=== PATIENT | female | born 1975 | race Caucasian/White ===

== ENCOUNTER → 2017-06-05 | Outpatient (CLI) | payer OTHER | LOC: FIMAGING 11:38 | PROVIDERS: ATTEND Nurse Practitioner | DX: R10.84 Generalized abdominal pain (principal); R14.0 Abdominal distension (gaseous); M61.451 Other calcification of muscle, right thigh ==

== ENCOUNTER 2018-10-14 05:51 | Observation (INO) | payer OTHER ==
--- NOTE | 2018-09-30 14:57 | GHP ---
DATE OF ADMISSION: 10/14/2018 PLANNED PROCEDURE: Total laparoscopic hysterectomy with bilateral salpingectomy for diagnosis of dysfunctional uterine bleeding. INDICATIONS: Patient is a 43-year-old, 3, para 2-0-1-2, who has a longstanding history of heavy and irregular periods. She had a Mirena years ago and loved it, and then she had a second Mirena placed, but she was having constant pain and bleeding and copious vaginal discharge. She underwent a hysteroscopy with morcellation of endometrial tissue and then endometrial ablation, which significantly improved her periods for about a year and a half. However, her periods have become progressively worse over the last 4 months. She has had increased bleeding and back pain and passing tissue about 1-2 times a month. The patient also has some stress urinary incontinence and initially had wanted to have that addressed at the time of surgery, but has declined to have that evaluated or treated at this time. Management options were reviewed with the patient, including hormonal therapy versus expected management versus hysterectomy. The patient has elected to proceed with a total laparoscopic hysterectomy with bilateral salpingectomy. Risks and benefits have been extensively reviewed with the patient, and patient has been properly consented. MEDICAL HISTORY: Significant for anxiety and depression, dysfunctional uterine bleeding and menorrhagia, and obesity. MEDICATIONS: Effexor 150 mg a day, prilosec. SURGICAL HISTORY: Cholecystectomy, ankle reconstruction secondary to ruptured tendon, hysteroscopy with morcellation of endometrial tissue and underwent endometrial ablation, tonsillectomy, and EGD. ALLERGIES: Codeine, which is just an intolerance which causes nausea and vomiting. Wellbutrin, which causes eosinophilic esophagitis. SOCIAL HISTORY: The patient is . She denies tobacco or drug use. She does drink alcoholic beverages socially. 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 FAMILY MEDICAL HISTORY: Noncontributory. LOGISTICS SUPERVISOR HISTORY: Menarche age 12. Periods have were previously 27 days to 37 days and heavy. She has had dysfunctional uterine bleeding and irregular bleeding for the last 5 months. The patient denies any history of any abnormal Pap smears or sexually transmitted diseases. She is a 3, para 2-0-1-2. She has had 2 spontaneous vaginal deliveries and 1 spontaneous . PHYSICAL EXAMINATION: VITAL SIGNS: Stable. GENERAL APPEARANCE: Alert and oriented x3. NECK: Mobile and supple. HEART: Rate is regular, regular. LUNGS: Clear to auscultation bilaterally. ABDOMEN: Obese, soft, nondistended , nontender. EXTREMITIES: Reveal no calf tenderness or edema. PELVIC: Reveals a mobile midposition uterus with no adnexal masses. MUSCULOSKELETAL: Grossly intact. PSYCH: Appropriate affect, grossly intact. NEURO: Grossly intact. Pelvic ultrasound was obtained, which showed her uterus measuring 6.5 x 2.7 x 4.45 cm with an endometrium of 0.64 cm, and normal ovaries. There is a possible polyp within the uterus. REVIEW OF SYSTEMS: 10-point review of systems is negative with the exception of the above-mentioned pertinent positives. ASSESSMENT AND PLAN: A 43-year-old, 3, para 2-0-1-2, who has progressively worsening dysfunctional uterine bleeding following an endometrial ablation 2 years ago. She is requesting definitive therapy with total laparoscopic with bilateral salpingectomy. Risks and benefits have been extensively reviewed with the patient, and the patient has been properly consented. She is aware of the risk of damage to the bowel, bladder, major blood vessels, risk of needing to open, as well as other potential need for additional surgery. The patient has been properly consented. /[id number]/MODL MTDD
[2018-10-14] MEDS ORDERED: BUPIVACAINE 0.5% 30 ML SDV ONE (06:02)
[2018-10-14] MEDS ORDERED: ceFAZolin 2 GM/DEXTROSE 100 ML IV ONE (06:05)
[2018-10-14] MEDS ORDERED: LR 1,000 ML IV ONE (06:12)
[2018-10-14] MEDS ORDERED: SCOPOLAMINE HYDROBROMIDE 1 MG/3 DAYS PATCH TD ONE (06:55)
--- NOTE | 2018-10-14 06:55 | PDANEPAE ---
ANE History of Present Illness 43 y/o female with dysfunctional uterine bleeding here for laparoscopic hysterectomy. ANE Past Medical History - Cardiovascular History Hx Hypertension: No Hx Arrhythmias: No Hx Chest Pain: No Hx Coronary Artery / Peripheral Vascular Disease: No Hx CHF / Valvular Disease: No Hx Palpitations: No - Pulmonary History Hx COPD: No Hx Asthma/Reactive Airway Disease: No Hx Recent Upper Respiratory Infection: No Hx Oxygen in Use at Home: No Hx Sleep Apnea: No Sleep Apnea Screening Result - Last Documented: Negative - Neurologic History Hx Cerebrovascular Accident: No Hx Seizures: No Hx Dementia: No - Endocrine History Hx Diabetes: No - Renal History Hx Renal Disorders: No - Liver History Hx Hepatic Disorders: No - Neurological & Psychiatric Hx Hx Neurological and Psychiatric Disorders: Yes Neurological / Psychiatric History Comment: depression - Cancer History Hx Cancer: No - Congenital Disorder History Hx Congenital Disorders: No - GI History Hx Gastrointestinal Disorders: Yes Gastrointestinal History Comment: gerd - Other Health History Other Health History: wears glasses/ contacts - Chronic Pain History Chronic Pain: No - Surgical History Prior Surgeries: 10/26/16 hysteroscopy with Nolasco. 06/25/16 ankle reconstruction with Leland. sierra 2001 ANE Review of Systems Review of Systems: - Exercise capacity Exercise capacity: >=4 METS METS (RN): 4 METS ANE Patient History - Allergies Allergies/Adverse Reactions: codeine [Codeine] Allergy (Verified 10/01/18 10:07) Vomiting - Home Medications Home medications: home medication list seen and reviewed Home Medications: Effexor Xr 10/01/18 [Last Taken 10/14/18 05:00] Prevacid 10/01/18 [Last Taken 10/14/18 05:00] - NPO status NPO Status: no food or drink >8 hours NPO Since - Liquids (Date): 10/14/18 NPO Since - Liquids (Time): 02:30 NPO Since - Solids (Date): 10/13/18 NPO Since - Solids (Time): 20:00 - Anes Hx Anes Hx: no prior problems, post operative nausea - Smoking Hx Smoking Status: Never smoked - Family Anes Hx Family Anes Hx: neg - N/A Family Hx Anesthesia Complications: none ANE Labs/Vital Signs - Vital Signs Vital Signs: reviewed preoperatively; see RN documention for details Blood Pressure: 112/79 Heart Rate: 79 Respiratory Rate: 14 O2 Sat (%): 95 Height: 160.02 cm Weight: 99.79 kg ANE Physical Exam - Airway Neck exam: FROM Mallampati Score: Class 2 Mouth exam: normal dental/mouth exam - Pulmonary Pulmonary: clear to auscultation - Cardiovascular Cardiovascular: regular rate and rhythym - ASA Status ASA Status: II
[2018-10-14] MEDS ORDERED: PROPOFOL/EMULSION 500 MG/50 ML BOTTLE IV ONE (06:59)
[2018-10-14] MEDS ORDERED: ROCURONIUM 100 MG/10 ML VIAL ONE (07:01)
[2018-10-14] MEDS ORDERED: fentaNYL 100 MCG/2 ML INJ ONE ×3 (07:10→10:16)
[2018-10-14] MEDS ORDERED: DEXAMETHASONE 4 MG/ML VIAL ONE (07:11)
--- NOTE | 2018-10-14 07:11 | PDHPUP ---
History & Physical Update H&P update statement: This history and physical update is based on an assessment of the patient which was completed after admission or registration (within 24 hours), but prior to the surgery/procedure. H&P update: H&P reviewed & patient examined, no change in patient's condition since H&P completed
[2018-10-14] MEDS ORDERED: METOCLOPRAMIDE 10 MG/2 ML VIAL ONE (07:12)
--- NOTE | 2018-10-14 08:30 | POSTANESTH ---
Post Anesthetic Evaluation Respiratory Status: Normal, Stable Level of Consciousness/Mental Status: Can Participate in Eval Pain Control: Adequate, Prn Tx Ordered Nausea/Vomiting Control: Adequate, Prn Tx Ordered Complications Possibly Related to Anesthesia: None Noted
[2018-10-14] MEDS ORDERED: NEOSTIGMINE METHYLSULFATE 5 MG/5 ML SYR ONE (09:33)
[2018-10-14] MEDS ORDERED: ONDANSETRON 4 MG/2 ML VIAL ONE (09:33)
[2018-10-14] MEDS ORDERED: GLYCOPYRROLATE 0.2 MG/1 ML VIAL ONE ×2 (09:33)
[2018-10-14] MEDS ORDERED: KETOROLAC 30 MG/1 ML SDV ONE (09:37)
[2018-10-14] MEDS ORDERED: LR 500 ML IV PRN (09:43)
[2018-10-14] MEDS ORDERED: ACETAMINOPHEN 500 MG TAB PO PRN (09:43)
[2018-10-14] MEDS ORDERED: MEPERIDINE 25 MG/0.5 ML AMP IVP PRN (09:43)
[2018-10-14] MEDS ORDERED: oxyCODONE IR 5 MG TAB PO PRN (09:43)
[2018-10-14] MEDS ORDERED: METOCLOPRAMIDE 10 MG/2 ML VIAL IVP PRN (09:43)
[2018-10-14] MEDS ORDERED: PROMETHAZINE HCL 25 MG/ML INJ IVP PRN (09:43)
[2018-10-14] MEDS ORDERED: NALOXONE HCL 0.4 MG/ML INJ IVP PRN (09:43)
[2018-10-14] MEDS ORDERED: LABETALOL HCL 5 MG/ML 20 ML MDV IVP PRN (09:43)
[2018-10-14] MEDS ORDERED: HYDROmorphONE/DILAUDID 2 MG/ML INJ IVP PRN (09:43)
[2018-10-14] MEDS ORDERED: ONDANSETRON 4 MG/2 ML VIAL IVP PRN ×2 (09:43→10:08)
[2018-10-14] MEDS ORDERED: BISACODYL 10 MG SUPP PR PRN (10:08)
[2018-10-14] MEDS ORDERED: LACTULOSE 20 GM/30 ML UDCUP PO PRN (10:08)
[2018-10-14] MEDS ORDERED: MAGNESIUM HYDROXIDE 30 ML UDCUP PO PRN (10:08)
[2018-10-14] MEDS ORDERED: POLYETHYLENE GLYCOL 3350 17 GM PKT PO PRN (10:08)
[2018-10-14] MEDS: fentaNYL 100 MCG/2 ML INJ IVP PRN ×3 (10:18→10:41)
[2018-10-14] MEDS ORDERED: VENLAFAXINE XR 150 MG CAP PO SCH (10:30)
[2018-10-14] MEDS: LR 1,000 ML IV SCH ×2 (11:40→18:28)
[2018-10-14] MEDS: KETOROLAC 30 MG/1 ML SDV IVP SCH ×2 (15:17→21:23)
--- NOTE | 2018-10-14 16:48 | SOAPPROG ---
SOAP Progress Note Assessment/Plan: Assessment: 43 yo pod# 0 s/p TLH BS for dysmenorrhea and dysfunctional uterine bleeding uncomplicated post operative course routine post operative care Plan: 10/14/18 16:45 Subjective: patient is doing well. pain is well controlled. primary pain is at 1 cm trochar site. using ice. tolerating diet. voiding without difficulty. ambulating in room. no concerns. reviewed surgical findings and discharge planning. Objective: Vital Signs Temp Pulse Resp BP Pulse Ox 36.1 C 117 H 18 144/98 H 95 10/14/18 14:56 10/14/18 14:56 10/14/18 14:56 10/14/18 14:56 10/14/18 12:16 10/13/18 10/14/18 10/15/18 05:59 05:59 05:59 Intake Total 1050 Output Total 170 Balance 880 Physical Exam - Physical Exam General Appearance: WD/WN, alert, no apparent distress Neck: non-tender, full range of motion Respiratory: chest non-tender, lungs clear, normal breath sounds Cardiac/Chest: normal peripheral pulses, regular rate, rhythm Abdomen: normal bowel sounds, non-tender, soft Skin: normal color, warm/dry Extremities: normal range of motion, non-tender, normal inspection, normal capillary refill Neuro/Psych: no motor/sensory deficits, alert, normal mood/affect, oriented x 3
[2018-10-14] MEDS ORDERED: HYDROmorphONE/DILAUDID 1 MG/ML INJ IVP PRN (16:54)
[2018-10-14] MEDS: HYDROCODONE/APAP 5/325 TAB PO PRN ×2 (17:30→22:26)
--- NOTE | 2018-10-14 18:17 | GOP ---
DATE OF OPERATION: 10/14/2018 SURGEON: Bailey Nolasco DO SPIRAL TUBE WINDER: Dr. Awilda Guardado ANESTHESIA: General endotracheal tube. ANESTHESIOLOGIST: Dr. Price. PREOPERATIVE DIAGNOSIS: Dysfunctional uterine bleeding, chronic pelvic pain, and dysmenorrhea. POSTOPERATIVE DIAGNOSIS: Dysfunctional uterine bleeding, chronic pelvic pain, and dysmenorrhea. PROCEDURE PERFORMED: Total laparoscopic hysterectomy with bilateral salpingectomy, and cystoscopy. FINDINGS: 1. Exam under anesthesia: Mobile midposition uterus with no adnexal masses. 2. Laparoscopic findings: Normal ovaries, uterus, and tubes. SPECIMENS: Uterus and bilateral fallopian tubes. ESTIMATED BLOOD LOSS: 150 cc. INDICATIONS: Patient is a 43-year-old 3, para 2-0-1-2 who has a longstanding history of heav y irregular periods. She has tried conservative measures and underwent an endometrial ablation, whic h did improve her symptoms for a while, but they have returned, and her periods are terrible with irr egular heavy bleeding, as well as chronic low back pain. Management options were reviewed with the p atbruno, and patient elected to proceed with a total laparoscopic hysterectomy with bilateral salpinge ctomy. Risks and benefits have been extensively reviewed with the patient and patient was properly c onsented. DESCRIPTION OF PROCEDURE: Patient was taken to the operating room with intravenous fluids in place. She was given 2 g of Ancef intravenously. She was then placed on the operating room table in the do rsal supine position, where general endotracheal tube was obtained. She was then repositioned into t he dorsal lithotomy position with the Yellofin stirrups and prepped and draped in normal sterile fash ion. A Rodrigues catheter was then placed. Venodyne's were placed on her lower extremities, and a speculum was then placed in the patient's vagi na and a single-tooth tenaculum was used to grasp the anterior lip of the cervix. The cervix was olivia nded to 5 cm. The trachelectomy tip was applied to the HENRY with a large cuff; however, this was fou nd to be too short, so the small uterine manipulator tip was then applied and the uterine manipulator was assembled. The uterus was noted to be mobilized with the uterine manipulator. Attention was then turned to the patient's abdomen, where a 5 mm skin incision was then made in the u mbilicus. A 5 mm trocar was then advanced into the patient's abdomen. We had a difficult time enter ing the abdomen, possibly because of patient's history of a previous cholecystectomy, so a 5 mm skin incision was then made just above the umbilicus after injection with local. A 5 mm trocar was then a dvanced into the patient's abdomen under direct visualization with the Optiview. The abdomen was the n insufflated with CO2 gas until an adequate pneumoperitoneum was achieved. An omental adhesion was noted at the area of the previous attempted trocar insertion site. 2 additional 5 mm trocars were th en placed in the patient's abdomen, superior and medial to the ASIS. This was done on direct visuali zation. The LigaSure was then inserted and the omental adhesion was then taken down. The uterus was noted to be freely mobile. Left salpingectomy was performed with the LigaSure, and the left lateral round ligament was then clamped, cauterized, and transected. The anterior and posterior leaflet of the broad ligament were then clamped, cauterized, and transected. The uterine arteries were then ske letonized, and a bladder flap was created anteriorly. The same procedure was performed on the contra lateral side. The bladder was dissected well away from the colpotomy ring. After the balloon was in flated in the patient's vagina on the HENRY uterine manipulator, the colpotomy was performed without d ifficulty and the uterus was then withdrawn through the vagina, and a sponge in a glove was then plac ed in the patient's vagina. Hemostasis of the vaginal cuff was assured. The 5 mm trocar was then wi thdrawn and a 10 mm trocar was then advanced into the patient's abdomen under direct visualization. The V-Loc suture was then used to close the vagina in a running fashion. Hemostasis was assured. Pr ior to the surgery and immediately following the procedure, bilateral ureters were noted to be perist alsing. The pedicles were noted to be hemostatic bilaterally. The upper abdomen was explored and fo und to be hemostatic. The appendix was unremarkable. The Rodrigues catheter was then removed from the patient's bladder and a cystoscopy was performed. Bilat eral ureteral jets were noted. The cystoscope was then removed from the patient's abdomen. The 10 mm trocar was then withdrawn and the fascial closure device was used to close the fascia with an 0 Vicryl suture in 4 passes. This was done under direct visualization. The CO2 gas was then expr essed from the patient's abdomen, and the skin was closed with 4-0 Monocryl in a subcuticular fashion , and Steri-Strips were applied to the patient's abdomen. A speculum exam was then performed. The v aginal cuff was noted to be hemostatic after removal of the sponge in a glove, and the patient was th en returned to the dorsal supine position where she was easily awoken from anesthesia. Sponge count was correct. The patient was transferred to recovery room in stable condition. /[id number]/MODL
[2018-10-14] MEDS ORDERED: SENNOSIDES/DOCUSATE SODIUM TAB PO SCH (21:00)
[2018-10-15] MEDS: KETOROLAC 30 MG/1 ML SDV IVP SCH (03:21)
[2018-10-15 04:26] VITALS: BP 116/76
[2018-10-15] MEDS: HYDROCODONE/APAP 5/325 TAB PO PRN ×2 (04:58→13:00)
[2018-10-15] MEDS ORDERED: VENLAFAXINE XR 150 MG CAP PO SCH (09:00)
[2018-10-15] MEDS ORDERED: KETOROLAC 30 MG/1 ML SDV IVP ONE (09:30)
--- NOTE | 2018-10-15 10:58 | SOAPPROG ---
SOAP Progress Note Assessment/Plan: Assessment: 43 yo pod# 1 s/p TLH BS for dysmenorrhea and dysfunctional uterine bleeding uncomplicated post operative course routine post operative care discharge instructions Subjective: patient is doing well. pain is well controlled. still having pain at left trochar site but it is better. tolerating diet. voiding without difficulty. ambulating. passing gas. no concerns. Objective: Vital Signs Temp Pulse Resp BP Pulse Ox 36.3 C 100 16 116/76 98 10/15/18 03:30 10/15/18 03:30 10/15/18 03:30 10/15/18 03:30 10/15/18 03:30 Laboratory Results 10/15/18 03:30 10/14/18 10/15/18 10/16/18 05:59 05:59 05:59 Intake Total 4450 Output Total 1490 Balance 2960 Physical Exam - Physical Exam General Appearance: WD/WN, alert, no apparent distress Neck: non-tender, full range of motion, supple Respiratory: chest non-tender, lungs clear, normal breath sounds Cardiac/Chest: normal peripheral pulses, regular rate, rhythm Abdomen: normal bowel sounds, non-tender, soft Skin: normal color, warm/dry Extremities: normal range of motion, non-tender, normal inspection, normal capillary refill Neuro/Psych: no motor/sensory deficits, alert, normal mood/affect, oriented x 3
[2018-10-15] MEDS: IBUPROFEN 600 MG TAB PO SCH ×2 (13:35→13:36)
== END 2018-10-15 13:30 | disposition home or self-care (01) ==
LOC: F3E 05:51 → FOB 11:10
PROVIDERS: ADMIT Obstetrics & Gynecology; ATTEND Obstetrics & Gynecology
DX: N93.8 Other specified abnormal uterine and vaginal bleeding (principal); N92.0 Excessive and frequent menstruation with regular cycle; N94.6 Dysmenorrhea, unspecified; R10.2 Pelvic and perineal pain; E66.9 Obesity, unspecified; Z68.38 Body mass index [BMI] 38.0-38.9, adult; F32.9 Major depressive disorder, single episode, unspecified; F41.9 Anxiety disorder, unspecified
CPT/HCPCS: 58571; G0378; J0690; J1100; J1885; J2270; J2405; J2704; J2710; J2765; J3010